=== PATIENT | female | born 1955 | race Caucasian/White ===

== ENCOUNTER 2017-01-24 13:33 | Emergency (ER) | payer MEDICAID ==
[~2017-01-24] VITALS: Ht 162.6 cm; Wt 63.5 kg
[~2017-01-24 13:33] MED LIST: AMLO5TAB4 PO; ARIP10TA28 PO; ASPI81TA28 PO; ATOR20TA40 PO; Acetaminophen PO; Acetaminophen/Hydrocodone Bi PO; DEP250L PO; DOCU-67 PO; DULO30EC PO; IMO2 PO; Lisinopril PO; METO50TE2 PO; OLAN5TAB30 PO; SYN.05 PO
--- NOTE | 2017-01-24 13:54 | NUR ---
Dr. Marsh evaluating patient while on ambulance [facility] in [place].
[2017-01-24 13:55] VITALS: BP 128/93
[2017-01-24] MEDS ORDERED: ONDANSETRON 4 MG/2 ML VIAL IVP ONE ×2 (13:55→15:15)
[2017-01-24] MEDS ORDERED: MORPHINE SULFATE 2 MG/ML SYR IVP ONE (13:55)
[2017-01-24] MEDS ORDERED: ALBUTEROL SULFATE/IPRATROPIU 3 ML SOL IH ONE (13:55)
[2017-01-24] MEDS ORDERED: METF850T PO (14:04)
[2017-01-24 14:28] LABS: MEAN CORPUSCULAR HGB CONC 33 g/dL (33-37); MONOCYTES # (AUTO) 0.6 K/uL (0.8-1.0); PLATELET COUNT (AUTO) 256 K/uL (140-450)
[2017-01-24 14:31] LABS: BASOPHILS # (AUTO) 0.2 K/uL (0.00-0.22); BASOPHILS % (AUTO) 1.7 % (0.0-2.0); EOSINOPHILS # (AUTO) 0.3 K/uL (0-0.4); EOSINOPHILS % (AUTO) 3.1 % (0.0-4.0); HEMATOCRIT 39.2 % (36-48); LYMPHOCYTES % (AUTO) 27.8 % (20.5-51.1); MEAN CORPUSCULAR HEMOGLOBIN 28 pg (27-31); MEAN CORPUSCULAR VOLUME 85 fL (80-94); MONOCYTES % (AUTO) 5.8 % (1.7-9.3); NEUTROPHILS # (AUTO) 6.8 K/uL (1.8-7.7); NEUTROPHILS % (AUTO) 61.6 % (42.2-75.2); RED CELL DISTRIBUTION WIDTH 12.8 % (11.6-13.7); WHITE BLOOD COUNT (AUTO) 10.9 K/uL (4.8-10.8)
[2017-01-24 14:42] LABS: ANION GAP 17.2 (8-16); CALCIUM 9.4 mg/dL (8.5-10.1); CARBON DIOXIDE 22.3 mmol/L (21-32); CREATININE 1.3 mg/dL (0.6-1.3); POTASSIUM 4.5 mmol/L (3.5-5.1)
[2017-01-24 14:45] LABS: AMYLASE 42 U/L (25-115); LIPASE 103 U/L (73-393)
[2017-01-24 14:47] LABS: ALBUMIN 4.6 g/dL (3.4-5.0); TOTAL BILIRUBIN 0.5 mg/dL (0.0-1.0); TOTAL PROTEIN, SERUM 8.8 g/dL (6.4-8.2)
--- NOTE | 2017-01-24 15:00 | NUR ---
PREHOSPITAL IV NOT ABLE TO FLUSH. 20G IV INSERTED TO RHAND. IV PATENT AND INTACT. MEDS GIVEN PER
--- NOTE | 2017-01-24 15:00 | NUR ---
Patient transferred to bed 3. RN evaluating patient at bedside.
--- NOTE | 2017-01-24 15:10 | NUR ---
PT STS NEEDS TO PEE. BED TAYLOR PLACED UNDER PT. URINE COLLECTED FOR SAMPLE.
[2017-01-24] MEDS ORDERED: MORPHINE SULFATE 5 MG/ML VIAL IVP ONE (15:15)
--- NOTE | 2017-01-24 15:15 | NUR ---
61/F BIBA FROM [facility] HERE FOR ABD PAIN AND INCREASED PSYCHOSIS. PT ON CONTACT ISO R/T ESBL URINE. HX: DM,HTN,HYPOTHYROIDSM,ANEMIA,HIGH CHOL, BILAT. BREAST IMPLANT, PSYCHOSIS, CARDIOMYOPATHY. BS FACILITY AT 1200 116. PT AWAKE, ALERT X2. PT YELLS REPEATEDLY "HELP ME, HELP ME. I CAN'T BREATHE." VSS. PT HOB ELEVATED. WITH INTERVENTION AND ASSISTANCE PT CONTINUES TO YELL. ER AWARE.
[2017-01-24] MEDS ORDERED: NACL 0.9% 2,000 ML IV ONE (15:20)
--- NOTE | 2017-01-24 15:30 | NUR ---
CALLED CT TO [employer]ELOPER PT/.
--- NOTE | 2017-01-24 15:44 | NUR ---
injection maintenance technician at bedside.
--- NOTE | 2017-01-24 16:00 | NUR ---
20G IV TO LAC FOR IV CONTRAST. CT NOTIFIED AGAIN.
[2017-01-24] MEDS ORDERED: fentaNYL 0.05 MG/ML VIAL IVP ONE (16:05)
--- NOTE | 2017-01-24 16:20 | NUR ---
PT TRANSPORTED TO ED CT.
[2017-01-24] MEDS ORDERED: NACL 0.9% 1,000 ML IV ONE (17:35)
[2017-01-24 17:59] LABS: APPEARANCE,URINE CLEAR (CLEAR); BLOOD, URINE NEGATIVE (NEGATIVE); COLOR,URINE YELLOW (YELLOW); LEUKOCYTE ESTERASE ,URINE TRACE (NEGATIVE); NITRITE, URINE NEGATIVE (NEGATIVE); PH,URINE 5.5 (5.0-9.0); PROTEIN,URINE NEGATIVE (NEGATIVE); UGLUCOSE NEGATIVE (NEGATIVE); UROBILINOGEN,URINE 0.2 EU/dL (0.2 - 1)
--- NOTE | 2017-01-24 18:05 | NUR ---
[facility] CALLED, SPOKE TO JULIO MARISCAL. PT REPORT GIVEN. Patient belongings inventoried and will be sent with patient. Copy of nursing notes, lab reports, EKG, Physicians Orders and X-rays to be sent with patient. [facility] ambulance service has been called for transfer. ETA is 20.
[2017-01-24 18:14] LABS: BILIRUBIN,URINE NEGATIVE (NEGATIVE)
[2017-01-24 18:15] LABS: BACTERIA,URINE 1+ /HPF (None Seen); MUCUS,URINE 2+ /LPF (None Seen); RBC,URINE 0-3 /HPF (0-5); WBC,URINE 0-5 /HPF (0-5)
[2017-01-24 18:40] VITALS: BP 139/95
== END 2017-01-24 18:05 | disposition home or self-care (01) ==
LOC: MED 13:33
CPT/HCPCS: 36415; 71020; 74177; 80053; 81001; 82150; 83690; 83880; 84484; 85025; 85379; 87086; 94640; 96361; 96374; 96375; 99285; J2270; J2405; J3010; J7030; J7620; Q0092; Q9967